=== PATIENT | female | born 1990 | race Caucasian/White ===

== ENCOUNTER 2020-02-27 20:58 | Emergency (ER) | payer MEDICAID ==
[~2020-02-27] VITALS: Ht 177.8 cm; Wt 86.4 kg
[2020-02-27] MEDS ORDERED: TETanus/Pertussis (Acell)/Diphther VAC/PF (Tdap-Adult) 0.5ml syringe IMVAC ONE (23:05)
[2020-02-27] MEDS ORDERED: LIDOcaine 1% W/epiNEPHrine 1:200,000 10ml vial IJ ONE (23:35)
[2020-02-28] MEDS ORDERED: DOXY100C2 PO (00:01)
[2020-02-28] MEDS ORDERED: CEPH500C5 PO (00:01)
[2020-02-28 00:56] VITALS: BP 17/77
== END 2020-02-28 00:57 | disposition home or self-care (01) ==
LOC: ER 20:59
DX: L02.811 Cutaneous abscess of head [any part, except face] (principal); Z86.14 Personal history of Methicillin resistant Staphylococcus aureus infection; Z79.899 Other long term (current) drug therapy
CPT/HCPCS: 10060; 90471; 90715; 99283; 99284

== ENCOUNTER 2020-03-16 17:49 | Emergency (ER) | payer MEDICAID ==
[~2020-03-16] VITALS: Ht 177.8 cm; Wt 81.8 kg
[2020-03-16 18:12] VITALS: BP 113/81
[2020-03-16] MEDS ORDERED: diphenhydrAMINE 2%/zinc acetate cream TP STA (19:50)
[2020-03-16] MEDS ORDERED: diphenhydrAMINE 25mg capsule PO ONE (19:50)
[2020-03-16] MEDS ORDERED: mupirocin 2% ointment 22GM TP STA (19:50)
== END 2020-03-16 20:20 | disposition home or self-care (01) ==
LOC: ER 17:50
DX: R21 Rash and other nonspecific skin eruption (principal); R22.31 Localized swelling, mass and lump, right upper limb; M79.644 Pain in right finger(s); Z86.14 Personal history of Methicillin resistant Staphylococcus aureus infection
CPT/HCPCS: 99284; Q0163; 99283

== ENCOUNTER 2020-03-24 09:55 | Emergency (ER) | payer MEDICAID ==
[~2020-03-24] VITALS: Ht 177.8 cm; Wt 81.8 kg
[2020-03-24 10:12] VITALS: BP 122/66
[2020-03-24] MEDS ORDERED: PERM60CR19 TP (10:35)
[2020-03-24] MEDS ORDERED: DIPH25CA83 PO (10:35)
[2020-03-24] MEDS ORDERED: CEPH250T PO (10:35)
[2020-03-24] MEDS ORDERED: diphenhydrAMINE 25mg capsule PO ONE (10:35)
== END 2020-03-24 11:11 | disposition home or self-care (01) ==
LOC: ER 09:56
DX: S60.562A Insect bite (nonvenomous) of left hand, initial encounter (principal); L25.9 Unspecified contact dermatitis, unspecified cause; Z86.14 Personal history of Methicillin resistant Staphylococcus aureus infection; Z79.2 Long term (current) use of antibiotics; Z79.899 Other long term (current) drug therapy; W57.XXXA Bitten or stung by nonvenomous insect and other nonvenomous arthropods, initial encounter; Y93.89 Activity, other specified; Y92.89 Other specified places as the place of occurrence of the external cause; Y99.8 Other external cause status
CPT/HCPCS: 99283; Q0163

== ENCOUNTER 2020-06-16 18:51 | Emergency (ER) | payer MEDICAID ==
[~2020-06-16] VITALS: Ht 175.3 cm; Wt 76.4 kg
[~2020-06-16 18:51] MED LIST: DIPH25CA83 PO
[2020-06-16 18:54] VITALS: BP 107/72
[2020-06-16] MEDS ORDERED: LIDOcaine 1% W/epiNEPHrine 1:100,000 20ml vial SQ ONE (20:10)
[2020-06-16] MEDS ORDERED: sulfamethoxazole/trimethoprim DS (800/160mg) tablet PO ONE (20:15)
[2020-06-16] MEDS ORDERED: SULF1TAB49 PO (20:38)
== END 2020-06-16 21:14 | disposition home or self-care (01) ==
LOC: ER 18:51
DX: L02.31 Cutaneous abscess of buttock (principal); Z86.14 Personal history of Methicillin resistant Staphylococcus aureus infection; Z79.2 Long term (current) use of antibiotics; Z79.899 Other long term (current) drug therapy
CPT/HCPCS: 10060; 99283